=== PATIENT | female | born 1945 | race African-American/Black ===

== ENCOUNTER 2016-12-27 18:42 | Emergency (ER) | payer MEDICARE, BC ==
[~2016-12-27] VITALS: Ht 157.5 cm; Wt 61.7 kg
[~2016-12-27 18:42] MED LIST: AMLO10TA4 PO; HYDR-2666 PO; LISI30TA4 PO; LORA1TAB PO; METF500T4 PO; POTA10TA31 PO
[2016-12-27 20:20] VITALS: BP 119/57
[2016-12-27] MEDS ORDERED: IV NORMAL SALINE 500ML BAG 500 ML IV ONE (20:30)
[2016-12-27 20:38] LABS: OBC FLU VALID
[2016-12-27 20:42] LABS: BASO % 1 % (0-3); EOS % 0 % (0-3); HEMOGLOBIN 11.5 g/dL (12.0-15.5); LYMPH # 0.4 x10^3/uL (1.0-4.8); LYMPH % 6 % (24-48); MEAN CORPUSCULAR HEMOGLOBIN 27 pg (25-35); MEAN CORPUSCULAR HGB CONC 33 g/dL (31-37); MEAN CORPUSCULAR VOLUME 81 fL (79-100); MONO % 7 % (0-9); NEUT % 87 % (31-73); PLATELET COUNT 147 x10^3/uL (140-400); RED BLOOD COUNT 4.32 x10^6/uL (3.50-5.40); RED CELL DISTRIBUTION WIDTH 14.1 % (11.5-14.5); WHITE BLOOD COUNT 6.9 x10^3/uL (4.0-11.0)
[2016-12-27 21:03] LABS: ALBUMIN 3.4 g/dL (3.4-5.0); ALBUMIN/GLOBULIN RATIO 0.9 (1.0-1.7); CALCIUM 8.8 mg/dL (8.5-10.1); GFR 66.3; TOTAL BILIRUBIN 0.3 mg/dL (0.2-1.0); TOTAL PROTEIN 7.3 g/dL (6.4-8.2)
[2016-12-27 21:08] LABS: POTASSIUM 2.9 mmol/L (3.5-5.1)
[2016-12-27 21:24] LABS: PLT ESTIMATE ADEQUATE (ADEQUATE)
[2016-12-27] MEDS ORDERED: POTA10TA10 PO (21:38)
[2016-12-27] MEDS ORDERED: OSEL75CA PO (21:38)
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
[2016-12-27] MEDS ORDERED: POTASSIUM CHLORIDE 20 MEQ/15 ML ORAL LIQUID. PO ONE (22:00)
[2016-12-27] MEDS ORDERED: OSELTAMIVIR 75 MG CAPSULE PO ONE (22:00)
--- NOTE | 2016-12-28 06:29 | EKG ---
[facility] [address] [place] [address] Test Date: 2016-12-27 Test Time: 19:34:35 Pat Name: GIL MARSHALL Department: Room: Gender: F Center Manager: : 1945 Requested By: JENNA LAWSON Order Number: [id number] Reading MD: Zahra Brown Measurements Intervals [place] Rate: 96 P: 40 NV: 186 QRS: -3 QRSD: 82 T: 32 QT: 348 QTc: 441 Interpretive Statements SINUS RHYTHM LEFTWARD AXIS QRS(T) CONTOUR ABNORMALITY CONSISTENT WITH SEPTAL INFARCT AGE UNDETERMINED ABNORMAL ECG RI6.01 Compared to ECG 11/27/2014 06:43:18 Myocardial infarct finding now present Electronically Signed On 01-01-2017 10:03:06 PUBLICITY EXPERT by Zahra Brown
--- NOTE | 2016-12-28 08:20 | RAD ---
Indication cough. Fever. A single view of the chest was obtained and is compared to an examination 11/21/2009. The heart and pulmonary vessels appear normal. The lungs are clear. There is no pleural fluid or pneumothorax. A significant change when compared to the previous exam is not seen. IMPRESSION: No acute or focal process is seen in the chest
== END 2016-12-27 22:05 | disposition home or self-care (01) ==
LOC: ER 18:42
DX: J09.X2 Influenza due to identified novel influenza A virus with other respiratory manifestations (principal); E87.6 Hypokalemia; R19.7 Diarrhea, unspecified; R11.10 Vomiting, unspecified; R42 Dizziness and giddiness; M19.90 Unspecified osteoarthritis, unspecified site; E11.9 Type 2 diabetes mellitus without complications; I10 Essential (primary) hypertension; Z90.710 Acquired absence of both cervix and uterus
CPT/HCPCS: 36415; 71010; 80053; 85007; 85027; 87804; 93005; 99285; J7040; 99284

== ENCOUNTER 2017-10-22 15:37 | Emergency (ER) | payer MEDICARE, BC ==
[~2017-10-22] VITALS: Ht 157.5 cm; Wt 61.7 kg
[~2017-10-22 15:37] MED LIST changes: -HYDR-2666 PO; +HYDR-2758 PO; +OSEL75CA PO; +POTA10TA12 PO
[2017-10-22 17:41] LABS: BASO # 0.1 x10^3/uL (0.0-0.2); BASO % 1 % (0-3); EOS % 0 % (0-3); HEMATOCRIT 36.1 % (36.0-47.0); HEMOGLOBIN 11.8 g/dL (12.0-15.5); LYMPH % 29 % (24-48); MEAN CORPUSCULAR HEMOGLOBIN 27 pg (25-35); MEAN CORPUSCULAR HGB CONC 33 g/dL (31-37); MEAN CORPUSCULAR VOLUME 83 fL (79-100); MONO % 11 % (0-9); NEUT % 58 % (31-73); PLATELET COUNT 176 x10^3/uL (140-400); RED BLOOD COUNT 4.34 x10^6/uL (3.50-5.40); RED CELL DISTRIBUTION WIDTH 14.2 % (11.5-14.5); WHITE BLOOD COUNT 6.9 x10^3/uL (4.0-11.0)
[2017-10-22 17:56] LABS: CREATININE 0.9 mg/dL (0.6-1.0); GFR 74.9; POTASSIUM 3.3 mmol/L (3.5-5.1)
[2017-10-22 18:01] LABS: ALBUMIN 3.5 g/dL (3.4-5.0); ALBUMIN/GLOBULIN RATIO 0.9 (1.0-1.7); TOTAL BILIRUBIN 0.4 mg/dL (0.2-1.0); TOTAL PROTEIN 7.2 g/dL (6.4-8.2)
[2017-10-22] MEDS ORDERED: ACETAMINOPHEN 500 MG TABLET PO ONE (18:15)
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
--- NOTE | 2017-10-22 20:44 | RAD ---
Left Lower Extremity Venous Doppler Ultrasound History: Left knee pain and lower leg pain and left lower extremity swelling Comparison: None Procedure: Color flow, duplex, spectral analysis and 2D images are obtained with and without compression in the area of the common femoral vein, superficial femoral vein - femoral vein junction, main femoral vein (superficial femoral vein) and popliteal vein. Veins of the proximal calf are also imaged. Findings: There is normal duplex flow, color flow and compressibility of all visualized vein segments. No evidence of deep venous thrombus is present. Impression: No evidence of DVT. Electronically signed by: Gerard Leyva III, MD (10/22/2017 8:41 PM) [facility]
[2017-10-22 21:23] VITALS: BP 119/79
--- NOTE | 2017-10-23 08:45 | RAD ---
TIBIA FIBULA LEFT Clinical Indication: Nontraumatic left leg pain and swelling for 4 days. Patient reports pain due to swelling from the left proximal knee to the foot. Comparison: None. Technique: Frontal and lateral views of the left tibia and fibula are obtained. Findings: No acute fracture or dislocation is seen. Knee and ankle joints appear grossly maintained. Degenerative changes are seen involving the knee. Mild soft tissue stranding is seen along the lateral soft tissues on the frontal view. IMPRESSION: No acute osseous injury seen.
--- NOTE | 2017-10-23 08:49 | RAD ---
KNEE LEFT 4V Clinical Indication: Nontraumatic pain and swelling for 4 days. Comparison: None. Technique: Frontal, oblique, lateral, and sunrise views of the left knee are obtained. Findings: Mild to moderate tricompartmental degenerative changes are present. Soft tissue swelling and stranding is seen about the medial aspect of the knee, as well as soft tissue swelling seen along the anterior knee. No acute fracture or dislocation is seen. Mild chondrocalcinosis is present. A small suprapatellar joint effusion is suggested. IMPRESSION: 1. No acute osseous injury. Soft tissue swelling and stranding about the medial knee, with small suprapatellar joint fluid suggested. 2. Tricompartmental degenerative changes.
== END 2017-10-22 22:05 | disposition home or self-care (01) ==
LOC: ER 15:37
DX: M79.605 Pain in left leg (principal); M79.89 Other specified soft tissue disorders; M19.90 Unspecified osteoarthritis, unspecified site; I10 Essential (primary) hypertension; E11.9 Type 2 diabetes mellitus without complications; Z90.710 Acquired absence of both cervix and uterus
CPT/HCPCS: 36415; 73564; 73590; 80053; 83880; 85025; 93971; 99285-25

== ENCOUNTER → 2018-01-18 | Outpatient (CLI) | payer MEDICARE, BC | END | disposition home or self-care (01) | LOC: MAMMO 10:12 | DX: Z12.31 Encounter for screening mammogram for malignant neoplasm of breast (principal) | CPT/HCPCS: 77063; 77067 ==

== ENCOUNTER 2018-09-20 10:54 | Emergency (ER) | payer MEDICARE, BC ==
[~2018-09-20] VITALS: Ht 157.5 cm; Wt 61.7 kg
[~2018-09-20 10:54] MED LIST changes: +METF500T16 PO; -METF500T4 PO
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
[2018-09-20] MEDS ORDERED: IV NORMAL SALINE 500ML BAG 500 ML IV ONE (12:15)
[2018-09-20 12:27] LABS: BASO % 0 % (0-3); EOS # 0.1 x10^3/uL (0.0-0.7); EOS % 1 % (0-3); HEMOGLOBIN 12.9 g/dL (12.0-15.5); LYMPH # 2.3 x10^3/uL (1.0-4.8); LYMPH % 37 % (24-48); MEAN CORPUSCULAR HEMOGLOBIN 28 pg (25-35); MEAN CORPUSCULAR HGB CONC 34 g/dL (31-37); MEAN CORPUSCULAR VOLUME 82 fL (79-100); MONO # 0.5 x10^3/uL (0.0-1.1); MONO % 7 % (0-9); NEUT # 3.4 x10^3uL (1.8-7.7); NEUT % 55 % (31-73); PLATELET COUNT 219 x10^3/uL (140-400); RED BLOOD COUNT 4.64 x10^6/uL (3.50-5.40); RED CELL DISTRIBUTION WIDTH 14.2 % (11.5-14.5); WHITE BLOOD COUNT 6.3 x10^3/uL (4.0-11.0)
[2018-09-20 12:29] LABS: BILIRUBIN,URINE NEGATIVE (NEG); CLARITY,URINE CLEAR; NITRITE,URINE NEGATIVE (NEG); PROTEIN,URINE NEGATIVE (NEG-TRACE); UROBILINOGEN,URINE 0.2 mg/dL (0.2 mg/dL)
[2018-09-20 12:33] LABS: CALCIUM 9.8 mg/dL (8.5-10.1); CREATININE 0.8 mg/dL (0.6-1.0); GFR 85.6; POTASSIUM 3.4 mmol/L (3.5-5.1)
[2018-09-20 12:43] LABS: BACTERIA,URINE FEW /HPF (0-FEW); COLOR,URINE COLORLESS; RBC,URINE RARE /HPF (0-2); SQUAMOUS EPITHELIAL CELL,UR OCC /LPF; WBC,URINE RARE /HPF (0-4)
--- NOTE | 2018-09-20 13:11 | EKG ---
[facility] [address] [place] [address] Test Date: 2018-09-20 Test Time: 12:12:58 Pat Name: GIL MRASHALL Department: Room: Gender: F Storage Battery Tester: : 1945 Requested By: FRANKI BAZAN Order Number: [id number] Reading MD: Bandar Landrum Measurements Intervals [place] Rate: 74 P: 47 MO: 194 QRS: 1 QRSD: 74 T: 48 QT: 392 QTc: 440 Interpretive Statements SINUS RHYTHM NORMAL ECG Electronically Signed On 09-23-2018 10:24:15 CDT by Bandar Landrum
[2018-09-20 13:30] VITALS: BP 122/65
== END 2018-09-20 14:00 | disposition home or self-care (01) ==
LOC: ER 10:54
DX: I10 Essential (primary) hypertension (principal); R42 Dizziness and giddiness; E11.9 Type 2 diabetes mellitus without complications; Z90.710 Acquired absence of both cervix and uterus; Z98.890 Other specified postprocedural states
CPT/HCPCS: 36415; 80048; 81001; 84484; 85025; 93005; 96360; 99285; J7040

== ENCOUNTER 2018-12-11 08:32 | Emergency (ER) | payer MEDICARE, BC ==
[~2018-12-11] VITALS: Ht 157.5 cm; Wt 63.5 kg
[~2018-12-11 08:32] MED LIST changes: -HYDR-2758 PO; +HYDR-2761 PO
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
[2018-12-11 09:05] LABS: BILIRUBIN,URINE NEGATIVE (NEG); CLARITY,URINE CLEAR; NITRITE,URINE NEGATIVE (NEG); PROTEIN,URINE NEGATIVE (NEG-TRACE); UROBILINOGEN,URINE 0.2 mg/dL (0.2 mg/dL)
[2018-12-11 09:08] LABS: BASO # 0.1 x10^3/uL (0.0-0.2); BASO % 1 % (0-3); EOS # 0.1 x10^3/uL (0.0-0.7); EOS % 1 % (0-3); HEMATOCRIT 37.5 % (36.0-47.0); LYMPH # 2.6 x10^3/uL (1.0-4.8); LYMPH % 51 % (24-48); MEAN CORPUSCULAR HEMOGLOBIN 29 pg (25-35); MEAN CORPUSCULAR HGB CONC 35 g/dL (31-37); MEAN CORPUSCULAR VOLUME 83 fL (79-100); MONO # 0.4 x10^3/uL (0.0-1.1); MONO % 9 % (0-9); NEUT # 1.9 x10^3uL (1.8-7.7); NEUT % 38 % (31-73); PLATELET COUNT 219 x10^3/uL (140-400); RED BLOOD COUNT 4.55 x10^6/uL (3.50-5.40); RED CELL DISTRIBUTION WIDTH 13.9 % (11.5-14.5); WHITE BLOOD COUNT 5.1 x10^3/uL (4.0-11.0)
[2018-12-11 09:10] LABS: COLOR,URINE COLORLESS; RBC,URINE OCC /HPF (0-2); SQUAMOUS EPITHELIAL CELL,UR FEW /LPF; WBC,URINE 0 /HPF (0-4)
[2018-12-11 09:11] LABS: BACTERIA,URINE 0 /HPF (0-FEW)
[2018-12-11 09:21] LABS: CALCIUM 9.9 mg/dL (8.5-10.1); CREATININE 0.8 mg/dL (0.6-1.0); GFR 85.3; POTASSIUM 3.6 mmol/L (3.5-5.1)
[2018-12-11 10:00] VITALS: BP 130/66
--- NOTE | 2018-12-11 10:59 | EKG ---
[facility] [address] [place] [address] Test Date: 2018-12-11 Test Time: 08:49:33 Pat Name: GIL MARSHALL Department: Room: Gender: Female [employer] Personality: : 1945 Requested By: FRANKI BAZAN Order Number: [id number] Reading MD: Bandar Landrum Measurements Intervals [place] Rate: 82 P: 38 GA: 200 QRS: -2 QRSD: 74 T: 49 QT: 370 QTc: 435 Interpretive Statements SINUS RHYTHM LEFTWARD AXIS QRS(T) CONTOUR ABNORMALITY CONSISTENT WITH ANTEROSEPTAL INFARCT PROBABLY OLD ABNORMAL ECG Electronically Signed On 12-21-2018 17:00:53 PEST CONTROL SPECIALIST by Bandar Landrum
== END 2018-12-11 10:12 | disposition home or self-care (01) ==
LOC: ER 08:32
DX: I10 Essential (primary) hypertension (principal); F41.9 Anxiety disorder, unspecified; E11.9 Type 2 diabetes mellitus without complications
CPT/HCPCS: 36415; 80048; 81001; 84484; 85025; 93005; 99284

== ENCOUNTER → 2019-01-21 | Outpatient (CLI) | payer MEDICARE, BC ==
[~2019-01-21] MED LIST changes: +NAPR-695 PO; +PRED50TA PO
--- NOTE | 2019-01-23 14:25 | RAD ---
DATE: 01/21/2019 11:30 AM EXAM: MAMMO GAB SCREENING BILATERAL HISTORY: routine screening evaluation. COMPARISON: Prior mammographic imaging dating back to 11/10/2014 Bilateral CC and MLO views of the breasts were performed. Bilateral breast tomosynthesis was performed in CC and MLO projections. This study was interpreted with the benefit of Computerized Aided Detection (CAD ). Breast Density: The breast parenchyma is primarily fatty replaced. Breast parenchyma level density A. FINDINGS: Benign calcifications are present. The parenchymal pattern appears stable. No suspicious masses, microcalcifications or architectural distortion is present to suggest malignancy in either breast. The visualized axillae are unremarkable. IMPRESSION: No mammographic evidence of malignancy. BI-RADS CATEGORY: 2 BENIGN FINDING(S) RECOMMENDED FOLLOW-UP: 12M 12 MONTH FOLLOW-UP Annual screening mammography is recommended, unless clinically indicated sooner based on symptoms or change in physical exam. PQRS compliance statement: Patient information was entered into a reminder system with a target due date 01/23/2020 for the next mammogram. Mammography is a sensitive method for finding small breast cancers, but it does not detect them all and is not a substitute for careful clinical examination. A negative mammogram does not negate a clinically suspicious finding and should not result in delay in biopsying a clinically suspicious abnormality. "Our facility is accredited by the [employer] Mammography Program." [place]
== END | disposition home or self-care (01) ==
LOC: MAMMO 09:17
PROVIDERS: ATTEND Nurse Practitioner Family
DX: Z12.31 Encounter for screening mammogram for malignant neoplasm of breast (principal)
CPT/HCPCS: 77063; 77067

== ENCOUNTER 2019-01-31 22:39 | Emergency (ER) | payer MEDICARE, BC ==
[~2019-01-31] VITALS: Ht 157.5 cm; Wt 62.1 kg
[~2019-01-31 22:39] MED LIST changes: -NAPR-695 PO; -PRED50TA PO
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
[2019-01-31] MEDS ORDERED: PRED50TA PO (23:51)
[2019-01-31] MEDS ORDERED: methylPREDNISolone SOD SUCC PF 125 MG/2 ML VIAL. IM ONE (23:55)
[2019-02-01 00:19] VITALS: BP 134/67
--- NOTE | 2019-02-01 02:13 | RAD ---
Indication:wrist pain/swelling; no injury TECHNIQUE: 3 views of left wrist COMPARISON: None FINDINGS/ impression: Diffuse osteopenia. No acute fracture or dislocation. Mild radiocarpal joint osteoarthritis. Mild wrist soft tissue swelling. Electronically signed by: Sukhdeep Mckeon DO (02/01/2019 2:10 AM) [facility] [place]
== END 2019-02-01 00:15 | disposition home or self-care (01) ==
LOC: ER 22:39
DX: M19.032 Primary osteoarthritis, left wrist (principal); I10 Essential (primary) hypertension; E11.9 Type 2 diabetes mellitus without complications
CPT/HCPCS: 73110; 96372; 99283; J2930

== ENCOUNTER 2019-02-15 03:26 | Emergency (ER) | payer MEDICARE, BC ==
[~2019-02-15] VITALS: Ht 157.5 cm; Wt 62.1 kg
[~2019-02-15 03:26] MED LIST changes: +PRED50TA PO
[2019-02-15] MEDS ORDERED: DEXAMETHASONE 4 MG TABLET PO ONE (04:00)
[2019-02-15] MEDS ORDERED: NAPR-695 PO (04:00)
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
[2019-02-15 04:20] VITALS: BP 124/59
--- NOTE | 2019-02-15 07:59 | RAD ---
Left hand, 3 views, 02/15/2019: HISTORY: Hand pain and swelling There is mild patchy bony demineralization. There are mild to moderate degenerative changes at scattered interphalangeal and MCP joints. No bone erosions are seen. There are mild degenerative changes at the wrist with chondrocalcinosis involving the triangular fibrocartilage. No fracture or dislocation is identified. IMPRESSION: 1. Mild to moderate scattered degenerative changes. 2. No acute bony abnormality is detected. Electronically signed by: Joseph Morales MD (02/15/2019 7:56 AM) [facility]
== END 2019-02-15 04:30 | disposition home or self-care (01) ==
LOC: ER 03:26
DX: S60.222A Contusion of left hand, initial encounter (principal); R60.0 Localized edema; I10 Essential (primary) hypertension; E11.9 Type 2 diabetes mellitus without complications; W22.8XXA Striking against or struck by other objects, initial encounter; Y93.89 Activity, other specified; Y92.89 Other specified places as the place of occurrence of the external cause; Y99.8 Other external cause status
CPT/HCPCS: 73130; 99283; J8540

== ENCOUNTER 2019-05-08 08:02 | Emergency (ER) | payer MEDICARE, BC ==
[~2019-05-08] VITALS: Ht 157.5 cm; Wt 59.4 kg
[~2019-05-08 08:02] MED LIST changes: +NAPR-695 PO
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
[2019-05-08 08:54] LABS: BASO # 0.1 x10^3/uL (0.0-0.2); BASO % 1 % (0-3); EOS % 1 % (0-3); HEMATOCRIT 38.5 % (36.0-47.0); HEMOGLOBIN 12.9 g/dL (12.0-15.5); LYMPH % 37 % (24-48); MEAN CORPUSCULAR HEMOGLOBIN 28 pg (25-35); MEAN CORPUSCULAR HGB CONC 34 g/dL (31-37); MEAN CORPUSCULAR VOLUME 83 fL (79-100); MONO # 0.5 x10^3/uL (0.0-1.1); MONO % 9 % (0-9); NEUT # 2.8 x10^3uL (1.8-7.7); NEUT % 52 % (31-73); PLATELET COUNT 217 x10^3/uL (140-400); RED BLOOD COUNT 4.63 x10^6/uL (3.50-5.40); RED CELL DISTRIBUTION WIDTH 14.5 % (11.5-14.5); WHITE BLOOD COUNT 5.4 x10^3/uL (4.0-11.0)
[2019-05-08 08:56] LABS: BILIRUBIN,URINE NEGATIVE (NEG); CLARITY,URINE CLEAR; COLOR,URINE YELLOW; NITRITE,URINE NEGATIVE (NEG); PROTEIN,URINE NEGATIVE (NEG-TRACE); UROBILINOGEN,URINE 0.2 mg/dL (0.2 mg/dL)
[2019-05-08 09:02] LABS: CALCIUM 10.5 mg/dL (8.5-10.1); CREATININE 0.8 mg/dL (0.6-1.0); GFR 85.3; POTASSIUM 3.3 mmol/L (3.5-5.1)
--- NOTE | 2019-05-08 09:05 | RAD ---
CHEST PA LATERAL History: Left upper back pain Comparison: 12/27/2016 portable chest x-ray exam. Findings: The cardiomediastinal silhouette is normal. Pulmonary vasculature is normal. The lungs are clear. No pleural effusion or pneumothorax is seen. There is no acute bone abnormality. IMPRESSION: No acute cardiopulmonary process. Electronically signed by: Donnell Briones MD (05/08/2019 9:02 AM) [id number]
[2019-05-08 09:08] LABS: ALBUMIN/GLOBULIN RATIO 0.9 (1.0-1.7); MAGNESIUM 1.8 mg/dL (1.8-2.4); TOTAL BILIRUBIN 0.3 mg/dL (0.2-1.0); TOTAL PROTEIN 8.3 g/dL (6.4-8.2)
[2019-05-08 09:29] LABS: BACTERIA,URINE 0 /HPF (0-FEW); RBC,URINE 0 /HPF (0-2); SQUAMOUS EPITHELIAL CELL,UR FEW /LPF; WBC,URINE 0 /HPF (0-4)
[2019-05-08 09:54] VITALS: BP 125/58
--- NOTE | 2019-05-08 12:05 | EKG ---
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
== END 2019-05-08 10:17 | disposition home or self-care (01) ==
LOC: ER 08:02
DX: M54.6 Pain in thoracic spine (principal); M19.90 Unspecified osteoarthritis, unspecified site; E11.9 Type 2 diabetes mellitus without complications; I10 Essential (primary) hypertension; Z90.710 Acquired absence of both cervix and uterus
CPT/HCPCS: 36415; 71046; 80053; 81001; 83735; 84484; 85025; 93005; 99285-25

== ENCOUNTER 2019-05-22 05:49 | Emergency (ER) | payer MEDICARE, BC ==
[~2019-05-22] VITALS: Ht 157.5 cm; Wt 59.0 kg
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
[2019-05-22 06:28] LABS: BASO % 1 % (0-3); EOS % 1 % (0-3); HEMATOCRIT 37.9 % (36.0-47.0); HEMOGLOBIN 12.5 g/dL (12.0-15.5); LYMPH % 35 % (24-48); MEAN CORPUSCULAR HEMOGLOBIN 28 pg (25-35); MEAN CORPUSCULAR HGB CONC 33 g/dL (31-37); MEAN CORPUSCULAR VOLUME 83 fL (79-100); MONO # 0.5 x10^3/uL (0.0-1.1); MONO % 8 % (0-9); NEUT # 3.2 x10^3uL (1.8-7.7); NEUT % 56 % (31-73); PLATELET COUNT 248 x10^3/uL (140-400); RED BLOOD COUNT 4.57 x10^6/uL (3.50-5.40); RED CELL DISTRIBUTION WIDTH 14.9 % (11.5-14.5); WHITE BLOOD COUNT 5.8 x10^3/uL (4.0-11.0)
[2019-05-22 06:37] LABS: PROTHROMBIN TIME PATIENT 12.8 SEC (11.7-14.0)
[2019-05-22 06:44] LABS: CALCIUM 9.7 mg/dL (8.5-10.1); CREATININE 0.9 mg/dL (0.6-1.0); GFR 74.5; POTASSIUM 3.7 mmol/L (3.5-5.1)
[2019-05-22 06:53] LABS: ALBUMIN 4.1 g/dL (3.4-5.0); ALBUMIN/GLOBULIN RATIO 1.2 (1.0-1.7); MAGNESIUM 1.8 mg/dL (1.8-2.4); TOTAL BILIRUBIN 0.2 mg/dL (0.2-1.0); TOTAL PROTEIN 7.5 g/dL (6.4-8.2)
--- NOTE | 2019-05-22 06:59 | EKG ---
[facility] [address] [place] [address] Test Date: 2019-05-22 Test Time: 06:12:35 Pat Name: GIL MARSHALL Department: Room: Gender: F Care Analyst: DALIA : 1945 Requested By: YVONNE GRANT Order Number: [id number] Reading MD: Measurements Intervals [place] Rate: 83 P: -42 [place]: 184 QRS: -18 QRSD: 74 T: 18 QT: 364 QTc: 433 Interpretive Statements SINUS RHYTHM LEFT ATRIAL ABNORMALITY LEFTWARD AXIS QRS(T) CONTOUR ABNORMALITY CONSISTENT WITH ANTEROSEPTAL INFARCT AGE UNDETERMINED ABNORMAL ECG No previous ECG available for comparison
--- NOTE | 2019-05-22 07:26 | RAD ---
CT head without contrast PQRS statement: CT scans at this facility use dose reduction including either automated exposure control, iterative reconstructions, and /or weight based radiation dosing via mA and kV modification when appropriate to reduce radiation dose to as low as reasonably achievable. HISTORY: Right facial pain, hypertension. TECHNIQUE: 5 mm axial noncontrast imaging skull base to vertex. FINDINGS: Cerebral white matter hypoattenuation in a patient of this age most likely represents imaging changes of chronic microvascular ischemic injury. No intracranial hemorrhage, mass, hydrocephalus or infarction. White matter infarction could be obscured by the presumed chronic hypoattenuating changes. Imaged orbits, mastoids, paranasal sinuses and bones are unremarkable. IMPRESSION: No acute intracranial CT abnormality. Electronically signed by: Zafar Mejias MD (05/22/2019 7:23 AM) [id number]
[2019-05-22 07:34] VITALS: BP 132/64
== END 2019-05-22 08:00 | disposition home or self-care (01) ==
LOC: ER 05:49
DX: G50.1 Atypical facial pain (principal); I10 Essential (primary) hypertension; F41.9 Anxiety disorder, unspecified; M19.90 Unspecified osteoarthritis, unspecified site; E11.9 Type 2 diabetes mellitus without complications; K21.9 Gastro-esophageal reflux disease without esophagitis; E78.00 Pure hypercholesterolemia, unspecified; Z90.710 Acquired absence of both cervix and uterus
CPT/HCPCS: 36415; 70450; 80053; 82553; 83735; 84484; 85025; 85610; 85730; 93005; 99285-25

== ENCOUNTER → 2020-04-03 | Outpatient (CLI) | payer MEDICARE, BC ==
[~2020-04-03] MED LIST changes: -POTA10TA12 PO; +POTASSIUM CHLO10 ME1 PO
--- NOTE | 2020-04-05 16:44 | RAD ---
DATE: 04/03/2020 12:35 PM EXAM: MAMMO GAB SCREENING BILATERAL HISTORY: Screening COMPARISON: 01/21/2019 Bilateral CC and MLO views of the breasts were performed. Bilateral breast tomosynthesis was performed in CC and MLO projections. This study was interpreted with the benefit of Computerized Aided Detection (CAD). FINDINGS: Breast Density: FATTY The Breast Parenchyma is primarily fatty replaced. Breast parenchyma level density A. No suspicious masses, microcalcifications or architectural distortion is present to suggest malignancy in either breast. The visualized axillae are unremarkable. IMPRESSION: No mammographic evidence of malignancy. BI-RADS CATEGORY: 1 NEGATIVE RECOMMENDED FOLLOW-UP: 12M 12 MONTH FOLLOW-UP Annual screening mammography is recommended, unless clinically indicated sooner based on symptoms or change in physical exam. PQRS compliance statement: Patient information was entered into a reminder system with a target due date 04/04/2021 for the next mammogram. Mammography is a sensitive method for finding small breast cancers, but it does not detect them all and is not a substitute for careful clinical examination. A negative mammogram does not negate a clinically suspicious finding and should not result in delay in biopsying a clinically suspicious abnormality. "Our facility is accredited by the [employer] Mammography Program."
== END | disposition home or self-care (01) ==
LOC: MAMMO 12:06
PROVIDERS: ATTEND Nurse Practitioner Family
DX: Z12.31 Encounter for screening mammogram for malignant neoplasm of breast (principal)
CPT/HCPCS: 77063; 77067

== ENCOUNTER 2020-06-07 17:32 | Emergency (ER) | payer MEDICARE, BC ==
[~2020-06-07] VITALS: Ht 157.5 cm; Wt 61.8 kg
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
--- NOTE | 2020-06-07 19:58 | RAD ---
INDICATION: Reason: pain / Spl. Instructions: / History: COMPARISON: None. IMPRESSION: Left shoulder: 3 views obtained. Hypertrophic changes at the acromioclavicular joint which could be seen with degenerative changes. Calcific atherosclerosis at partially visualized thoracic aorta. No evidence of acute fracture or dislocation at the left shoulder joint. There is evidence of degenerative changes with osteophyte formation at the glenohumeral joint. Scapula: 2 views obtained without a definite acute fracture seen. No evidence of dislocation. Subchondral cyst formation is suspected at the glenoid. Electronically signed by: Otis Miles MD (06/07/2020 7:55 PM) [id number]
[2020-06-07] MEDS ORDERED: HYDR-3164 PO (20:06)
[2020-06-07 20:34] VITALS: BP 157/69
== END 2020-06-07 20:38 | disposition home or self-care (01) ==
LOC: ER 17:32
DX: M25.512 Pain in left shoulder (principal); G89.29 Other chronic pain; E11.9 Type 2 diabetes mellitus without complications; K21.9 Gastro-esophageal reflux disease without esophagitis; E78.00 Pure hypercholesterolemia, unspecified; I10 Essential (primary) hypertension
CPT/HCPCS: 73010; 73030; 99284

== ENCOUNTER 2020-09-12 06:52 | Emergency (ER) | payer MEDICARE, BC ==
[~2020-09-12] VITALS: Ht 157.5 cm; Wt 62.0 kg
[~2020-09-12 06:52] MED LIST changes: +HYDR-3164 PO
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
[2020-09-12 07:48] LABS: BILIRUBIN,URINE NEGATIVE (NEG); CLARITY,URINE CLEAR; COLOR,URINE YELLOW; NITRITE,URINE NEGATIVE (NEG); PH,URINE 6.5 (<5.0-8.0); PROTEIN,URINE NEGATIVE (NEG-TRACE); UROBILINOGEN,URINE 0.2 mg/dL (0.2 mg/dL)
[2020-09-12 07:48] LABS: BASO # 0.1 x10^3/uL (0.0-0.2); BASO % 1 % (0-3); EOS # 0.1 x10^3/uL (0.0-0.7); EOS % 1 % (0-3); HEMATOCRIT 37.7 % (36.0-47.0); HEMOGLOBIN 12.5 g/dL (12.0-15.5); LYMPH # 3.5 x10^3/uL (1.0-4.8); LYMPH % 51 % (24-48); MEAN CORPUSCULAR HEMOGLOBIN 27 pg (25-35); MEAN CORPUSCULAR HGB CONC 33 g/dL (31-37); MEAN CORPUSCULAR VOLUME 83 fL (79-100); MONO # 0.5 x10^3/uL (0.0-1.1); MONO % 8 % (0-9); NEUT # 2.7 x10^3/uL (1.8-7.7); NEUT % 39 % (31-73); PLATELET COUNT 224 x10^3/uL (140-400); RED BLOOD COUNT 4.55 x10^6/uL (3.50-5.40); RED CELL DISTRIBUTION WIDTH 13.6 % (11.5-14.5); WHITE BLOOD COUNT 6.8 x10^3/uL (4.0-11.0)
--- NOTE | 2020-09-12 08:03 | RAD ---
CT HEAD WO CONTRAST Date: 09/12/2020 7:22 AM Clinical Indication: dizziness Comparison: 05/22/2019. Technique: 5 mm axial tomographic images were obtained of the head without contrast. These were viewed on brain and bone windows. One or more of the following dose reduction techniques were utilized: Automated exposure control (AEC), Adjustment of mA and/or kV according to patient size, Use of iterative reconstruction technique such as ASiR, CT scan done according to ALARA and image gently/image wisely Findings: Moderate nonspecific periventricular hypoattenuation is most consistent with chronic small vessel ischemic disease. No intra- or extra-axial mass or fluid collection. No acute hemorrhage. The ventricles are normal in size, shape, and morphology. The shaw-white matter junction is normal. The subarachnoid cisterns are patent. The visualized paranasal sinuses are normal. The visualized portions of the orbits and globes are normal. The mastoid air cells are clear. The accounts collector topogram shows no lytic lesion or fracture. Impression: No acute intracranial process. Electronically signed by: Darryl Miramontes MD (09/12/2020 8:00 AM) [id number]
--- NOTE | 2020-09-12 08:08 | RAD ---
EXAMINATION: CHEST AP ONLY CLINICAL HISTORY: Dizzy EXAM DATE/TIME: 09/12/2020 7:22 AM COMPARISON: 05/08/2019 FINDINGS: Lines, Tubes, and Devices: None. Cardiomediastinal Silhouette: Normal heart size. Aortic atherosclerotic calcification. Lungs and Pleura: Mild curvilinear subsegmental atelectasis and/or scarring in the left lower lung zone. No evidence of focal airspace consolidation or pleural effusion. Pulmonary vasculature unremarkable. Bones and Soft Tissues: Degenerative changes of the thoracic spine. IMPRESSION: No evidence of acute cardiopulmonary abnormality or significant interval change. Electronically signed by: Rob Garcia DO (09/12/2020 8:05 AM) [id number]
[2020-09-12 08:16] LABS: BACTERIA,URINE 0 /HPF (0-FEW); RBC,URINE OCC /HPF (0-2); WBC,URINE OCC /HPF (0-4)
[2020-09-12 08:53] LABS: CALCIUM 9.2 mg/dL (8.5-10.1); CREATININE 0.9 mg/dL (0.6-1.0); GFR 74.3; POTASSIUM 3.3 mmol/L (3.5-5.1)
[2020-09-12 08:58] LABS: ALBUMIN 3.6 g/dL (3.4-5.0); DIRECT BILIRUBIN 0.1 mg/dL (0.0-0.2); TOTAL BILIRUBIN 0.1 mg/dL (0.2-1.0); TOTAL PROTEIN 6.5 g/dL (6.4-8.2)
[2020-09-12 10:38] VITALS: BP 120/56
== END 2020-09-12 10:43 | disposition home or self-care (01) ==
LOC: ER 06:52
DX: R42 Dizziness and giddiness (principal); I47.1 Supraventricular tachycardia; M19.90 Unspecified osteoarthritis, unspecified site; F41.9 Anxiety disorder, unspecified; E11.9 Type 2 diabetes mellitus without complications; K21.9 Gastro-esophageal reflux disease without esophagitis; E78.00 Pure hypercholesterolemia, unspecified; I10 Essential (primary) hypertension; Z90.710 Acquired absence of both cervix and uterus; Z98.890 Other specified postprocedural states
CPT/HCPCS: 36415; 70450; 71045; 80048; 80076; 81001; 83690; 84484; 85025; 93005; 99285

== ENCOUNTER 2020-11-18 08:44 | Emergency (ER) | payer MEDICARE, BC ==
[~2020-11-18] VITALS: Ht 157.5 cm; Wt 62.0 kg
[2020-11-18 09:15] LABS: BILIRUBIN,URINE NEGATIVE (NEG); CLARITY,URINE CLEAR; COLOR,URINE YELLOW; NITRITE,URINE NEGATIVE (NEG); PH,URINE 6.5 (<5.0-8.0); PROTEIN,URINE NEGATIVE (NEG-TRACE); UROBILINOGEN,URINE 0.2 mg/dL (0.2 mg/dL)
[2020-11-18 09:28] LABS: BARBITURATES NEG (NEG); BENZODIAZEPINES NEG (NEG); CANNABINOIDS NEG (NEG); COCAINE NEG (NEG); METHADONE NEG (NEG); OPIATES NEG (NEG); PHENCYCLIDINE NEG (NEG)
[2020-11-18 09:29] LABS: AMPHETAMINE/METHAMPHETAMINE NEG (NEG)
[2020-11-18 09:30] LABS: RBC,URINE 0 /HPF (0-2)
[2020-11-18 09:31] LABS: BACTERIA,URINE 0 /HPF (0-FEW); WBC,URINE 0 /HPF (0-4)
--- NOTE | 2020-11-18 09:51 | PHYS DOC ---
Past Medical History Past Medical History: Anxiety, Arthritis, Diabetes-Type II, GERD, High Ch olesterol, Hypertension Additional Past Medical Histor: OSTEOPOROSIS Past Surgical History: Hysterectomy Additional Past Surgical Histo: foot Smoking Status: Never Smoker Alcohol Use: None Drug Use: None General Adult EDM: Chief Complaint: HYPERTENSION HPI: HPI: 75-year-old female past medical history significant for diabetes, hypertension and hyperlipidemia, presents to the ED with complaints of " can feel my heart pain in the left side of my neck," started her last night around 11 PM while watching TV. Patient states when she gets up and moves around she does not notice it. Had recently had a couple coffee when this started and took a Piero aspirin. Had decreased sleep overnight when she woke up no she still had the sensation in her neck. Took her blood pressure at home. Systolic was in the 180s so came to the ED. Is on lisinopril, amlodipine and nifedipine for blood pressure. No recent change in medications since 2019. No history of stroke or acute coronary syndrome. Denies any associated chest pain or pressure, dyspnea, confusion, speech changes, facial droop, sensory or motor deficits, weakness or neurologic deficits. Reports she drinks 1 to 2 cups of coffee per day. No [id number] decongestants. Denies any cocaine or methamphetamine use. Otherwise feels well, no recent flu-like illness. No head injury or LOC. On no AC. Review of Systems: Review of Systems: Constitutional: Denies fever or chills. [] Eyes: Denies change in visual acuity or vision loss HENT: Denies nasal congestion or sore throat, denies any facial droop or speech changes Respiratory: Denies cough or shortness of breath. [] Cardiovascular: Denies chest pain or edema or syncope GI: Denies abdominal pain, nausea, vomiting, bloody stools or diarrhea. [] : Denies dysuria or dysuria Musculoskeletal: Denies back pain or joint pain. [] Integument: Denies rash or cyanosis Neurologic: Denies headache, neck pain, focal weakness or sensory changes, denies any ataxia or difficulties walking Endocrine: Denies polyuria or polydipsia. [] Lymphatic: Denies swollen glands. [] Psychiatric: Denies depression or anxiety. [] Heart Score: Risk Factors: Risk Factors: DM, Current or recent (<one month) smoker, HTN, HLP, family history of CAD, obesity. Risk Scores: Score 0 - 3: 2.5% MACE over next 6 weeks - Discharge Home Score 4 - 6: 20.3% MACE over next 6 weeks - Admit for Clinical Observation Score 7 - 10: 72.7% MACE over next 6 weeks - Early Invasive Strategies Allergies: Allergies: Allergies Coded Allergies Type Severity Reaction Last Updated Verified No Known Drug Allergies 11/27/14 No Physical Exam: PE: Constitutional: Well developed, well nourished, no acute distress, non-toxic appearance, 147/66 during my exam HENT: Normocephalic, atraumatic, Eyes: EOMI, conjunctiva normal, no discharge. Neck: Normal range of motion, supple, Cardiovascular: S1/2 present, regular rhythm Lungs & Thorax: Speaking in full sentences, bilateral equal chest rise, no tachypnea or increased work of breathing Abdomen: soft, no tenderness, Skin: Warm, dry, no erythema, no rash. [] Back: No tenderness, no CVA tenderness. [] Extremities: No tenderness, no cyanosis, no edema Neurologic: Alert and oriented X 3, normal motor function, normal sensory function, no focal deficits noted, steady gait/no ataxia, no facial droop or aphasia, cn2-12 intact Psychologic: Affect normal, judgement normal, mood normal. [] Current Patient Data: Labs: Laboratory Tests Test 11/18/20 08:54 Urine Collection Type Unknown Urine Color Yellow Urine Clarity Clear Urine pH 6.5 (<5.0-8.0) Urine Specific [place] <=1.005 (1.000-1.030) Urine Protein Negative mg/dL (NEG-TRACE) Urine Glucose (UA) Negative mg/dL (NEG) Urine Ketones (Stick) Negative mg/dL (NEG) Urine Blood Negative (NEG) Urine Nitrite Negative (NEG) Urine Bilirubin Negative (NEG) Urine Urobilinogen Dipstick 0.2 mg/dL (0.2 mg/dL) Urine Leukocyte Esterase Negative (NEG) Urine RBC 0 /HPF (0-2) Urine WBC 0 /HPF (0-4) Urine Squamous Epithelial Cells Few /LPF Urine Bacteria 0 /HPF (0-FEW) Urine Opiates Screen Neg (NEG) Urine Methadone Screen Neg (NEG) Urine Barbiturates Neg (NEG) Urine Phencyclidine Screen Neg (NEG) Urine Amphetamine/Methamphetamine Neg (NEG) Urine Benzodiazepines Screen Neg (NEG) Urine Cocaine Screen Neg (NEG) Urine Cannabinoids Screen Neg (NEG) Urine Ethyl Alcohol Neg (NEG) Vital Signs: Vital Signs Date Time Temp Pulse Resp B/P (MAP) Pulse Ox O2 Delivery O2 Flow Rate FiO2 11/18/20 09:00 97.5 83 18 177/82 (113) 98 Room Air 97.5 EKG: EKG: [] Radiology/Procedures: Radiology/Procedures: IMAGING REPORT Signed PATIENT: GIL MARSHALL LACCOUNT: [id number] : 1945 LOCATION: ER AGE: 75 SEX: F EXAM STATUS: REG ER ORD. PHYSICIAN: LAVELLE VERA DO REASON: palpitations PROCEDURE: PORTABLE CHEST 1V XR CHEST 1V INDICATION: palpitations . COMPARISON STUDY: None. FINDINGS: Lungs: Normal lung volume. No pulmonary mass or consolidation. The tracheobronchial tree and hilar structures are normal. Pleura: No pleural effusion or pneumothorax. Heart and Mediastinum: The cardiomediastinal silhouette is normal. The great vessels of the thorax are normal. IMPRESSION: No acute cardiopulmonary process. Electronically signed by: Elba Miramontes MD (11/18/2020 10:41 AM) [id number] DICTATED and SIGNED BY: ELBA MIRAMONTES MD DATE: 11/18/20 [id number] 0 Course & Med Decision Making: Course & Med Decision Making Pertinent Labs and Imaging studies reviewed. (See chart for details) Concern for uncontrolled, asymptomatic hypertension in the absence of any end organ damage. Troponin within normal limits. Creatinine and BUN unremarkable. Chest x-ray with no pulmonary edema. Patient with no neurologic deficits. Per ACEP policy recommend repeat blood pressure check in the next week with primary care physician. No indication medication adjustment at this time. Will discharge home with strict ED return precautions were given for chest pain, dyspnea, neurologic deficits, facial droop, speech changes or confusion. Encouraged urgent outpatient follow-up with PMD. Life-threatening processes were considered but are low suspicion at this time, given history, physical exam and ED workup. Pt was educated on all prescription medications and adverse effects. All patient's questions were answered and pt was stable at time of discharge. Life/limb-threatening differential includes but is not limited to, endorgan damage, pulmonary edema, acute coronary syndrome, TIA/CVA, syncope differential including cardiac arrhythmia/PE/aortic aneurysm or dissection, toxidrome, vertigo, or electrolyte disorder. I spoken with the patient and her caregivers. I explained the patient's condition, diagnoses and treatment plan based on the information available to me at this time. I have answered the patient and her caregiver's questions and addressed any concerns. The patient and her caregivers have a good understanding of patient's diagnosis, condition and treatment plan as can be expected at this point. Vital signs have been stable. Patient's condition is stable and appropriate for discharge from the emergency department. Patient will pursue further outpatient evaluation with primary care physician or other designated or consulting physician as outlined in the discharge instructions. The patient and/or caregivers are agreeable to this plan of care and follow-up instructions have been explained in detail. The patient and/or caregivers have received these instructions in written form and have expressed an understanding of the discharge instructions. The patient and/or caregivers are aware that any significant change of condition or worsening of symptoms should prompt immediate return to this or the closest emergency department or [facility] to 911. Sam Disclaimer: Sam Disclaimer: This electronic medical record was generated, in whole or in part, using a voice recognition dictation system. Departure Departure Impression: Primary Impression: Uncontrolled hypertension Disposition: 01 DC HOME SELF CARE/HOMELESS Condition: STABLE Referrals: RAMO ROBLES COLOR STRAINER (PCP) in 3-5 days for bp recheck, return jazmine if you have chest pain, shortness of breath or confusion Patient Instructions: Hypertension Additional Instructions: EMERGENCY DEPARTMENT GENERAL DISCHARGE INSTRUCTIONS Thank you for coming to [facility] Emergency Department (ED) today and trusting us with you care. We trust that you had a positive experience in our Emergency Department. If you wish to speak to the department management, you may call the Director at [phone]. YOUR FOLLOW UP INSTRUCTIONS ARE FOLLOWS: 1. Do you have a private Doctor? If you do not have a private doctor, please ask for a resource list of physicians or clinics that may be able to assist you with follow up care. 2. The Emergency Physicain has interpreted your x-rays. The X-Ray specialist will also review them. If there is a change in the findings, you will be notified in 48 hours when at all possible. 3. A lab test or culture has been done, your results will be reviewed and you will be notified if you need a change in treatment. ADDITIONAL INSTRUCTIONS AND INFORMATION: 1. Your care today has been supervised by a physician who is specially trained in emergency care. Many problems require more than one evaluation for a complete diagnosis and treatment. We recommend that you schedule your follow up appointment as recommended to ensure complete treatment of you illness or injury. If you are unable to obtain follow up care and continue to have a problem, or if your condition worsens, we recommend that you return to the ED. 2. We are not able to safely determine your condition over the phone nor are we able to give sound medical advice over the phone. For these safety reasons, if you call for medical advice we will ask you to come to the ED for further evaluation. 3. If you have any questions regarding these discharge instructions please call the ED at [phone]. SAFETY INFORMATION: In the interest of safety, wellness, and injury prevention; we encourage you to wear your sealbelt, if you smoke; quite smoking, and we encourage family to use a protective helmet for bicycling and other sporting events that present an increased risk for head injury. IF YOUR SYMPTOMS WORSEN OR NEW SYMPTOMS DEVELOP, OR YOU HAVE CONCERNS ABOUT YOUR CONDITION; OR IF YOUR CONDITION WORSENS WHILE YOU ARE WAITING FOR YOUR FOLLOW UP APPOINTME NT; EITHER CONTACT YOUR PRIMARY CARE DOCTOR, THE PHYSICIAN WHOSE NAME AND NUMBER YOU WERE GIVEN, OR RETURN TO THE ED IMMEDIATELY. [facility] DO Nov 18, 2020 09:51
[2020-11-18 09:56] LABS: BASO % 1 % (0-3); EOS % 1 % (0-3); HEMATOCRIT 37.4 % (36.0-47.0); HEMOGLOBIN 12.3 g/dL (12.0-15.5); LYMPH % 40 % (24-48); MEAN CORPUSCULAR HEMOGLOBIN 28 pg (25-35); MEAN CORPUSCULAR HGB CONC 33 g/dL (31-37); MEAN CORPUSCULAR VOLUME 84 fL (79-100); MONO # 0.4 x10^3/uL (0.0-1.1); MONO % 8 % (0-9); NEUT # 2.5 x10^3/uL (1.8-7.7); NEUT % 51 % (31-73); PLATELET COUNT 184 x10^3/uL (140-400); RED BLOOD COUNT 4.47 x10^6/uL (3.50-5.40); RED CELL DISTRIBUTION WIDTH 14.1 % (11.5-14.5); WHITE BLOOD COUNT 4.9 x10^3/uL (4.0-11.0)
[2020-11-18 10:15] LABS: CALCIUM 9.8 mg/dL (8.5-10.1); CREATININE 0.7 mg/dL (0.6-1.0); POTASSIUM 3.5 mmol/L (3.5-5.1)
[2020-11-18 10:19] LABS: DIRECT BILIRUBIN 0.1 mg/dL (0.0-0.2); MAGNESIUM 1.6 mg/dL (1.8-2.4); TOTAL BILIRUBIN 0.2 mg/dL (0.2-1.0); TOTAL PROTEIN 7.3 g/dL (6.4-8.2)
--- NOTE | 2020-11-18 10:43 | RAD ---
XR CHEST 1V INDICATION: palpitations . COMPARISON STUDY: None. FINDINGS: Lungs: Normal lung volume. No pulmonary mass or consolidation. The tracheobronchial tree and hilar st ructures are normal. Pleura: No pleural effusion or pneumothorax. Heart and Mediastinum: The cardiomediastinal silhouette is normal. The great vessels of the thorax ar e normal. IMPRESSION: No acute cardiopulmonary process. Electronically signed by: Darryl Miramontes MD (11/18/2020 10:41 AM) [id number]
[2020-11-18 11:29] VITALS: BP 140/66
== END 2020-11-18 11:39 | disposition home or self-care (01) ==
LOC: ER 08:44
DX: I10 Essential (primary) hypertension (principal); R07.2 Precordial pain; R20.2 Paresthesia of skin; F41.9 Anxiety disorder, unspecified; M19.90 Unspecified osteoarthritis, unspecified site; E11.9 Type 2 diabetes mellitus without complications; K21.9 Gastro-esophageal reflux disease without esophagitis; E78.00 Pure hypercholesterolemia, unspecified; Z90.710 Acquired absence of both cervix and uterus; Z98.890 Other specified postprocedural states; Z79.899 Other long term (current) drug therapy
CPT/HCPCS: 36415; 71045; 80048; 80076; 80307; 81001; 83690; 83735; 83880; 84443; 84484; 85025; 93005; 99285

== ENCOUNTER 2020-12-27 00:34 | Emergency (ER) | payer MEDICARE, BC ==
[~2020-12-27] VITALS: Ht 152.4 cm; Wt 60.0 kg
[2020-12-27 02:25] LABS: BASO % 1 % (0-3); EOS % 0 % (0-3); HEMATOCRIT 34.5 % (36.0-47.0); HEMOGLOBIN 11.5 g/dL (12.0-15.5); LYMPH # 1.4 x10^3/uL (1.0-4.8); LYMPH % 26 % (24-48); MEAN CORPUSCULAR HEMOGLOBIN 27 pg (25-35); MEAN CORPUSCULAR HGB CONC 33 g/dL (31-37); MEAN CORPUSCULAR VOLUME 82 fL (79-100); MONO # 0.4 x10^3/uL (0.0-1.1); MONO % 7 % (0-9); NEUT # 3.4 x10^3/uL (1.8-7.7); NEUT % 66 % (31-73); PLATELET COUNT 256 x10^3/uL (140-400); RED BLOOD COUNT 4.21 x10^6/uL (3.50-5.40); RED CELL DISTRIBUTION WIDTH 13.2 % (11.5-14.5); WHITE BLOOD COUNT 5.1 x10^3/uL (4.0-11.0)
[2020-12-27 02:33] LABS: CALCIUM 9.4 mg/dL (8.5-10.1); CREATININE 0.8 mg/dL (0.6-1.0); GFR 84.8
[2020-12-27 02:41] LABS: POTASSIUM 2.8 mmol/L (3.5-5.1)
[2020-12-27] MEDS ORDERED: POTASSIUM CHLORIDE 20 MEQ TABLET.ER. PO ONE (02:45)
--- NOTE | 2020-12-27 02:55 | ED.ADGEN ---
Past Medical History Past Medical History: Anxiety, Arthritis, Diabetes-Type II, GERD, High Cholesterol, Hypertension Additional Past Medical Histor: OSTEOPOROSIS Past Surgical History: Hysterectomy Additional Past Surgical Histo: foot Smoking Status: Never Smoker Alcohol Use: None Drug Use: None General Adult EDM: Chief Complaint: HYPERTENSION HPI: HPI: Patient is a 75-year-old female who presents to the emergency room complaining of feeling at her heart was going to fast. She has had similar issues in the past. She has been evaluated in the emergency room multiple times for this and states that they typically tell her that she has anxiety. She denies any chest pain, shortness of breath, dizziness, headache, blurred vision, numbness, weakness. She states she took her blood pressure and it was elevated. She then took her night blood pressure medications right before coming to the emergency room. She was recently started on anxiety medicine which she is also taken this evening. She is no longer feeling the racing heart. Review of Systems: Review of Systems: Complete ROS is negative unless otherwise documented in HPI Current Medications: Current Medications Medications (Trade) Dose Ordered Sig/Eleni Start Time Stop Time Status Last Admin Dose Admin Potassium Chloride (Klor-Con) 40 meq 1X ONCE 12/27/20 02:45 12/27/20 02:46 DC Allergies: Allergies: Allergies Coded Allergies Type Severity Reaction Last Updated Verified No Known Drug Allergies 11/27/14 No Physical Exam: PE: General: Awake, alert, NAD. Well Nourished, well hydrated. Cooperative HEENT: Atraumatic, EOMI, PERRL, airway patent, moist oral mucosa Neck: Supple, trachea midline Respiratory: CTA bilaterally, normal effort, no wheezing/crackles CV: RRR, no murmur, cap refill <2 GI: Soft, nondistended, nontender, no masses MSK: No obvious deformities Skin: Warm, dry, intact Neuro: A&O x3, speech NL, sensory and motor grossly intact, no focal deficits Psych: Normal affect, normal mood, not suicidal or homicidal Current Patient Data: Labs: Laboratory Tests Test 12/27/20 02:03 White Blood Count 5.1 x10^3/uL (4.0-11.0) Red Blood Count 4.21 x10^6/uL (3.50-5.40) Hemoglobin 11.5 g/dL (12.0-15.5) L Hematocrit 34.5 % (36.0-47.0) L Mean Corpuscular Volume 82 fL (79-100) Mean Corpuscular Hemoglobin 27 pg (25-35) Mean Corpuscular Hemoglobin Concent 33 g/dL (31-37) Red Cell Distribution Width 13.2 % (11.5-14.5) Platelet Count 256 x10^3/uL (140-400) Neutrophils (%) (Auto) 66 % (31-73) Lymphocytes (%) (Auto) 26 % (24-48) Monocytes (%) (Auto) 7 % (0-9) Eosinophils (%) (Auto) 0 % (0-3) Basophils (%) (Auto) 1 % (0-3) Neutrophils # (Auto) 3.4 x10^3/uL (1.8-7.7) Lymphocytes # (Auto) 1.4 x10^3/uL (1.0-4.8) Monocytes # (Auto) 0.4 x10^3/uL (0.0-1.1) Eosinophils # (Auto) 0.0 x10^3/uL (0.0-0.7) Basophils # (Auto) 0.0 x10^3/uL (0.0-0.2) Sodium Level 132 mmol/L (136-145) L Potassium Level 2.8 mmol/L (3.5-5.1) *L Chloride Level 96 mmol/L (98-107) L Carbon Dioxide Level 28 mmol/L (21-32) Anion Gap 8 (6-14) Blood Urea Nitrogen 9 mg/dL (7-20) Creatinine 0.8 mg/dL (0.6-1.0) Estimated GFR (Cockcroft-Gault) 84.8 Glucose Level 158 mg/dL (70-99) H Calcium Level 9.4 mg/dL (8.5-10.1) Troponin I Quantitative < 0.017 ng/mL (0.000-0.055) Laboratory Tests 12/27/20 02:03 Laboratory Tests 12/27/20 02:03 EKG: EKG: [] Heart Score: Risk Factors: Risk Factors: DM, Current or recent (<one month) smoker, HTN, HLP, family history of CAD, obesity. Risk Scores: Score 0 - 3: 2.5% MACE over next 6 weeks - Discharge Home Score 4 - 6: 20.3% MACE over next 6 weeks - Admit for Clinical Observation Score 7 - 10: 72.7% MACE over next 6 weeks - Early Invasive Strategies Radiology/Procedures: Radiology/Procedures: [] Course & Med Decision Making: Course & Med Decision Making Pertinent Labs and Imaging studies reviewed. (See chart for details) Patient is a 75-year-old female who presents to the emergency room complaining of feeling of racing heart and hypertension. Upon my evaluation patient has a relatively normal blood pressure. She is well-appearing. EKG is unremarkable. Patient does not have dizziness, chest pain, shortness of breath. Lab work was ordered to evaluate for endorgan damage and was negative. Patient is not having any cardiac arrhythmia. Given that her blood pressure has improved and she had asymptomatic hypertension no further work-up or intervention is needed at this time per the SIGIFREDO guidelines. Patient's test results and vitals while in the ED were fully reviewed and discussed with the patient. Patient is stable and at this time does not need admission to the hospital. We have discussed strict return precautions and the importance of following up with their Primary Care Physician. Patient stated understanding and was given an opportunity to ask any questions. Patient is in agreement with plan. Sam Disclaimer: Sam Disclaimer: This electronic medical record was generated, in whole or in part, using a voice recognition dictation system. Departure Departure Impression: Primary Impression: Anxiety Additional Impression: Hypertension Disposition: 01 DC HOME SELF CARE/HOMELESS Condition: STABLE Referrals: RAMO ROBLES NP (PCP) Patient Instructions: Hypertension Problem Qualifiers JENNIFER BUNDY MD Dec 27, 2020 02:55
[2020-12-27 03:16] VITALS: BP 161/74
[2020-12-27] MEDS ORDERED: ATOR80TA72 PO (03:54)
[2020-12-27] MEDS ORDERED: BUSP30TA PO (03:54)
[2020-12-27] MEDS ORDERED: SERT25TA PO (03:55)
--- NOTE | 2020-12-27 08:28 | EKG ---
[facility] [address] [place] [address] Test Date: 2020-12-27 Test Time: 00:45:56 Pat Name: GIL MARSHALL Department: Room: Gender: F Nip Wrapper: : 1945 Requested By: JENNIFER BUNDY Order Number: [id number] Reading MD: Bandar Landrum Measurements Intervals [place] Rate: 91 P: 196 AL: 164 QRS: -10 QRSD: 84 T: 52 QT: 356 QTc: 445 Interpretive Statements SINUS RHYTHM LEFT ATRIAL ABNORMALITY LEFTWARD AXIS QRS(T) CONTOUR ABNORMALITY CONSISTENT WITH ANTEROSEPTAL INFARCT PROBABLY OLD Electronically Signed On 12-30-2020 10:08:10 MILLINERY DEPARTMENT MANAGER by Bandar Landrum
[2020-12-27] MEDS ORDERED: ONDA4TAB12 PO (21:20)
== END 2020-12-27 03:20 | disposition home or self-care (01) ==
LOC: ER 00:34
DX: F41.9 Anxiety disorder, unspecified (principal); I10 Essential (primary) hypertension; E11.9 Type 2 diabetes mellitus without complications; K21.9 Gastro-esophageal reflux disease without esophagitis; E78.00 Pure hypercholesterolemia, unspecified
CPT/HCPCS: 36415; 80048; 84484; 85025; 93005; 99285-25

== ENCOUNTER 2020-12-27 19:16 | Emergency (ER) | payer MEDICARE, BC ==
[~2020-12-27] VITALS: Ht 154.9 cm; Wt 60.0 kg
[~2020-12-27 19:16] MED LIST changes: +ATOR80TA72 PO; +BUSP30TA PO; +SERT25TA PO
--- NOTE | 2020-12-27 19:28 | PHYS DOC ---
Past Medical History Past Medical History: Anxiety, Arthritis, Diabetes-Type II, GERD, High Ch olesterol, Hypertension Additional Past Medical Histor: OSTEOPOROSIS Past Surgical History: Hysterectomy Additional Past Surgical Histo: foot Smoking Status: Never Smoker Alcohol Use: None Drug Use: None General Adult EDM: Chief Complaint: NAUSEA/VOMITING/DIARRHA HPI: HPI: 75-year-old female past medical history significant for type 2 diabetes, hypertension, hyperlipidemia, GERD, anxiety and osteoarthritis with osteoporosis, presents to the ED as a bounce back (was seen here 15 hours prior) with complaints of nausea, believed to be attributed to her blood pressure medication, hydralazine. Patient holds up to medications that were filled on December 24 of this year that include hydroxyzine and buspirone, stating these are the medications that are making her nauseous. Patient also was concerned her blood pressure was high at home, was 190/93. States she takes 10 mg of potassium daily for " years." New vomiting or diarrhea. Also complains of acute on chronic anxiety. EMR was reviewed from prior encounter at 2 AM earlier today. Patient was complaining of heart palpitations, feeling as if her heart was going fast. Potassium is 2.8. Troponin < 0.017. Patient takes supplemental potassium. Was given 40meq in ed. Review of Systems: Review of Systems: Constitutional: Denies fever or chills. [] Eyes: Denies change in visual acuity. [] HENT: Denies nasal congestion or sore throat. [] Respiratory: Denies cough or shortness of breath. [] Cardiovascular: Denies chest pain or edema. [] GI: Denies abdominal pain, vomiting, bloody stools or diarrhea. [] : Denies dysuria. [] Musculoskeletal: Denies back pain or joint pain. [] Integument: Denies rash. [] Neurologic: Denies headache, focal weakness or sensory changes. [] Endocrine: Denies polyuria or polydipsia. [] Lymphatic: Denies swollen glands. [] Psychiatric: Denies depression or SI/HI Heart Score: Risk Factors: Risk Factors: DM, Current or recent (<one month) smoker, HTN, HLP, family history of CAD, obesity. Risk Scores: Score 0 - 3: 2.5% MACE over next 6 weeks - Discharge Home Score 4 - 6: 20.3% MACE over next 6 weeks - Admit for Clinical Observation Score 7 - 10: 72.7% MACE over next 6 weeks - Early Invasive Strategies Allergies: Allergies: Allergies Coded Allergies Type Severity Reaction Last Updated Verified No Known Drug Allergies 11/27/14 No Physical Exam: PE: Constitutional: Well developed, well nourished, no acute distress, non-toxic appearance. HENT: Normocephalic, atraumatic, Eyes: EOMI, conjunctiva normal, no discharge. Neck: Normal range of motion, supple, Cardiovascular: S1/2 present, regular rhythm Lungs & Thorax: Speaking in full sentences, bilateral equal chest rise, no tachypnea or increased work of breathing Abdomen: soft, no tenderness, Skin: Warm, dry, no erythema, no rash. [] Back: No tenderness, no CVA tenderness. [] Extremities: No tenderness, no cyanosis, no edema Neurologic: Alert and oriented X 3, normal motor function, normal sensory function, no focal deficits noted. [] Psychologic: Affect normal, judgement normal, mood normal. [] EKG: EK Sinus rhythm at 70 bpm - limb lead discordance on ekg (p waves down on I and II and upright on aVL - should be opposite), first-degree AV block with AK 218, QTC 471, T wave inversions 1 and aVL, no ST elevations or ST depressions 1942and at 76 bpm, prolonged AK 224, left axis deviation, no T wave inversions, no ST elevations or ST depressions, first-degree AV block -no limb lead discordance on this EKG Radiology/Procedures: Radiology/Procedures: [] Course & Med Decision Making: Course & Med Decision Making Pertinent Labs and Imaging studies reviewed. (See chart for details) Well-appearing 75-year-old with mild, asymptomatic hypertension, presents to the ED with complaints of nausea after starting her "blood pressure medicine," - believes she recently started hydralazine. Patient with no active vomiting in ED. Is hemodynamically stable. Potassium is 2.9. Na - 128. Labs also show poorly controlled diabetes. Oral potassium replaced in ED. Magnesium wnl. Pt also c/o anxiety. Patient denies any SI or HI. Pt presents as a bounce back, 2nd ed visit in 24 hours. Patient was reassured that her symptoms are chronic and I recommended urgent PMD follow-up on Wednesday and GI evaluation for further investigation/consider endoscopy for chronic hypokalemia. Will discharge home with strict ED return precautions were given for chest pain, dyspnea, confusion, neurologic deficits or syncope. Encouraged urgent outpatient follow-up with PMD and GI. Life-threatening processes were considered but are low suspicion at this time, given history, physical exam and ED workup. Pt was educated on all pr escription medications and adverse effects. All patient's questions were answered and pt was stable at time of discharge. Life/limb-threatening differential includes but is not limited to, acute coronary syndrome/myocardial infarction, Boerhaave's, DKA, intracranial hemorrhage, ischemic bowel, meningitis, sepsis, surgical abdomen (AAA), toxidrome (drug over/overdose/carbon monoxide, etc), ovarian/testicular torsion, trauma, or infection/sepsis. I spoken with the patient and her caregivers. I explained the patient's condition, diagnoses and treatment plan based on the information available to me at this time. I have answered the patient and her caregiver's questions and addressed any concerns. The patient and her caregivers have a good understanding of patient's diagnosis, condition and treatment plan as can be expected at this point. Vital signs have been stable. Patient's condition is stable and appropriate for discharge from the emergency department. Patient will pursue further outpatient evaluation with primary care physician or other designated or consulting physician as outlined in the discharge instructions. The patient and/or caregivers are agreeable to this plan of care and follow-up instructions have been explained in detail. The patient and/or caregivers have received these instructions in written form and have expressed an understanding of the discharge instructions. The patient and/or caregivers are aware that any significant change of condition or worsening of symptoms should prompt immediate return to this or the closest emergency department or call to 911. Sam Disclaimer: Sam Disclaimer: This electronic medical record was generated, in whole or in part, using a voice recognition dictation system. Departure Departure Impression: Primary Impression: Chronic hypokalemia Additional Impressions: Anxiety Nausea Disposition: 01 DC HOME SELF CARE/HOMELESS Condition: STABLE Referrals: [facility] (PCP) Follow up on Wednesday for medication adjustment/medical management Patient Instructions: Anxiety and Panic Attacks, Hypokalemia, Nausea, Adult Additional Instructions: FOLLOW UP WITH GASTROENTEROLOGY: Gastroenterology [facility] Address: [address] [place] [address] EMERGENCY DEPARTMENT GENERAL DISCHARGE INSTRUCTIONS Thank you for coming to [facility] Emergency Department (ED) today and trusting us with you care. We trust that you had a positive experience in our Emergency Department. If you wish to speak to the department management, you may call the Director at [phone]. YOUR FOLLOW UP INSTRUCTIONS ARE FOLLOWS: 1. Do you have a private Doctor? If you do not have a private doctor, please ask for a resource list of physicians or clinics that may be able to assist you with follow up care. 2. The Emergency Physicain has interpreted your x-rays. The X-Ray specialist will also review them. If there is a change in the findings, you will be notified in 48 hours when at all possible. 3. A lab test or culture has been done, your results will be reviewed and you will be notified if you need a change in treatment. ADDITIONAL INSTRUCTIONS AND INFORMATION: 1. Your care today has been supervised by a physician who is specially trained in emergency care. Many problems require more than one evaluation for a complete diagnosis and treatment. We recommend that you schedule your follow up appointment as recommended to ensure complete treatment of you illness or injury. If you are unable to obtain follow up care and continue to have a problem, or if your condition worsens, we recommend that you return to the ED. 2. We are not able to safely determine your condition over the phone nor are we able to give sound medical advice over the phone. For these safety reasons, if you call for medical advice we will ask you to come to the ED for further evaluation. 3. If you have any questions regarding these discharge instructions please call the ED at [phone]. SAFETY INFORMATION: In the interest of safety, wellness, and injury prevention; we encourage you to wear your sealbelt, if you smoke; quite smoking, and we encourage family to use a protective helmet for bicycling and other sporting events that present an increased risk for head injury. IF YOUR SYMPTOMS WORSEN OR NEW SYMPTOMS DEVELOP, OR YOU HAVE CONCERNS ABOUT YOUR CONDITION; OR IF YOUR CONDITION WORSENS WHILE YOU ARE WAITING FOR YOUR FOLLOW UP APPOINTMENT; EITHER CONTACT YOUR PRIMARY CARE DOCTOR, THE PHYSICIAN WHOSE NAME AND NUMBER YOU WERE GIVEN, OR RETURN TO THE ED IMMEDIATELY. Scripts Ondansetron (ONDANSETRON ODT) 4 Mg Tab.rapdis 1 TAB PO PRN Q6-8HRS, #20 TAB Prov: LAVELLE VERA DO 12/27/20 LAVELLE VERA DO Dec 27, 2020 19:28
[2020-12-27] MEDS ORDERED: ONDANSETRON ODT 4 MG TAB.RAPDIS. PO ONE (19:30)
[2020-12-27 19:56] LABS: BASO % 1 % (0-3); EOS % 0 % (0-3); HEMATOCRIT 35.5 % (36.0-47.0); LYMPH # 1.7 x10^3/uL (1.0-4.8); LYMPH % 34 % (24-48); MEAN CORPUSCULAR HEMOGLOBIN 28 pg (25-35); MEAN CORPUSCULAR HGB CONC 34 g/dL (31-37); MEAN CORPUSCULAR VOLUME 82 fL (79-100); MONO # 0.4 x10^3/uL (0.0-1.1); MONO % 9 % (0-9); NEUT # 2.8 x10^3/uL (1.8-7.7); NEUT % 56 % (31-73); PLATELET COUNT 300 x10^3/uL (140-400); RED BLOOD COUNT 4.34 x10^6/uL (3.50-5.40); RED CELL DISTRIBUTION WIDTH 13.5 % (11.5-14.5); WHITE BLOOD COUNT 5.1 x10^3/uL (4.0-11.0)
[2020-12-27 20:03] LABS: CALCIUM 9.3 mg/dL (8.5-10.1); CREATININE 0.9 mg/dL (0.6-1.0); GFR 74.1
[2020-12-27 20:13] LABS: POTASSIUM 2.9 mmol/L (3.5-5.1)
--- NOTE | 2020-12-27 20:19 | RAD ---
INDICATION: Reason: n/v/d / Spl. Instructions: / History: COMPARISON: November 18, 2020 FINDINGS: Single view of chest obtained. Cardiac mediastinal silhouette is similar to prior with calcific atherosclerosis. No new region of ai rspace consolidation or pulmonary edema. Degenerative changes of the spine and shoulders. IMPRESSION: * No focal airspace consolidation or edema. Electronically signed by: Otis Miles MD (12/27/2020 8:17 PM) [id number]
[2020-12-27] MEDS ORDERED: POTASSIUM BICARB 20 MEQ EFFERVESCENT TABLET. PO ONE (20:45)
[2020-12-27] MEDS ORDERED: ACETAMINOPHEN 325 MG TABLET. PO ONE (21:00)
[2020-12-27] MEDS ORDERED: ONDA4TAB12 PO (21:20)
[2020-12-27 21:29] VITALS: BP 157/72
[2020-12-27] MEDS ORDERED: hydrOXYzine 25 MG TABLET PO PRN (21:30)
--- NOTE | 2020-12-30 11:54 | EKG ---
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
== END 2020-12-27 21:36 | disposition home or self-care (01) ==
LOC: ER 19:16
DX: E87.6 Hypokalemia (principal); F41.9 Anxiety disorder, unspecified; R11.0 Nausea
CPT/HCPCS: 36415; 71045; 80048; 83735; 84484; 85025; 93005; 99285-25

== ENCOUNTER 2021-01-19 08:59 | Emergency (ER) | payer MEDICARE, BC ==
[~2021-01-19] VITALS: Ht 154.9 cm; Wt 59.0 kg
[~2021-01-19 08:59] MED LIST changes: +ONDA4TAB12 PO
--- NOTE | 2021-01-19 10:39 | PHYS DOC ---
Past Medical History Past Medical History: Hypertension Additional Past Medical Histor: OSTEOPOROSIS Past Surgical History: No Surgical History Additional Past Surgical Histo: foot Smoking Status: Never Smoker Alcohol Use: None Drug Use: None General Adult EDM: Chief Complaint: HYPERTENSION HPI: HPI: 75-year-old female past medical history of noninsulin-dependent diabetes, hypertension, hyperlipidemia and GERD, presents to the ED with concerns for elevated blood pressure. States she woke up around 3 AM to the bathroom, her blood pressure at that time was 170/99. Upon ED arrival her blood pressure was 147/66. Reports she is on 4 different blood pressure medicines and added hydrochlorothiazide 2 weeks ago. Was admitted to [facility] November 2020 for elevated blood pressure and chest pain-her BP at that time was 199/90. Patient states her blood pressure" just keeps changing." No history of stroke. Not on any anticoagulants. Currently denies any active chest pain or discomfort, dyspnea, neurologic deficits. Follows with Radha Lloyd at [facility]. Last clinic visit was 12/24/20. Patient denies any [id number] decongestants including Sudafed, stimulants such as caffeine or energy drinks, or methamphetamine or cocaine abuse. Patient reports she has been told it is stress and was started on sertraline in addition to her buspirone and Xanax. Review of Systems: Review of Systems: Constitutional: Denies fever or chills. [] Eyes: Denies change in visual acuity. [] HENT: Denies nasal congestion or sore throat. [] Respiratory: Denies cough or shortness of breath. [] Cardiovascular: Denies chest pain or edema. [] GI: Denies abdominal pain, nausea, vomiting, bloody stools or diarrhea. [] : Denies dysuria. [] Musculoskeletal: Denies back pain or joint pain. [] Integument: Denies rash. [] Neurologic: Denies headache, focal weakness or sensory changes. [] Endocrine: Denies polyuria or polydipsia. [] Lymphatic: Denies swollen glands. [] Psychiatric: Denies depression or anxiety. [] Heart Score: Risk Factors: Risk Factors: DM, Current or recent (<one month) smoker, HTN, HLP, family history of CAD, obesity. Risk Scores: Score 0 - 3: 2.5% MACE over next 6 weeks - Discharge Home Score 4 - 6: 20.3% MACE over next 6 weeks - Admit for Clinical Observation Score 7 - 10: 72.7% MACE over next 6 weeks - Early Invasive Strategies Allergies: Allergies: Allergies Coded Allergies Type Severity Reaction Last Updated Verified No Known Drug Allergies 11/27/14 No Physical Exam: PE: Constitutional: Well developed, well nourished, no acute distress, non-toxic appearance. HENT: Normocephalic, atraumatic, Eyes: EOMI, conjunctiva normal, no discharge. Neck: Normal range of motion, supple, Cardiovascular: S1/2 present, regular rhythm Lungs & Thorax: Speaking in full sentences, bilateral equal chest rise, no tachypnea or increased work of breathing Abdomen: soft, no tenderness, Skin: Warm, dry, no erythema, no rash. [] Back: No tenderness, no CVA tenderness. [] Extremities: No tenderness, no cyanosis, no lower extremity edema Neurologic: Alert and oriented X 3, normal motor function, normal sensory function, no focal deficits noted. [] Psychologic: Affect normal, judgement normal, mood normal. [] Current Patient Data: Vital Signs: Vital Signs Date Time Temp Pulse Resp B/P (MAP) Pulse Ox O2 Delivery O2 Flow Rate FiO2 01/19/21 09:18 98.1 83 20 147/64 (91) 97 Room Air 98.1 EKG: EKG: Sinus rhythm 69 bpm, first-degree AV block with IA 206, left axis deviation, T wave inversions V2 and V3, no ST elevations or ST depressions, no active chest pain Radiology/Procedures: Radiology/Procedures: IMAGING REPORT Signed PATIENT: GIL MARSHALL LACCOUNT: [id number] : 1945 LOCATION: ER AGE: 75 SEX: F EXAM STATUS: PRE ER ORD. PHYSICIAN: LAVELLE VERA DO REASON: htn, left shoulder tingling PROCEDURE: CHEST AP ONLY EXAM: XR CHEST 1V INDICATION: Reason: htn, left shoulder tingling / Spl. Instructions: / History: . TECHNIQUE: Single view COMPARISON: Chest x-ray 12/27/2020 FINDINGS: The heart size is normal. The great vessels again show aortic calcification. No mediastinal widening or shift. There is no hilar or mediastinal mass. The lungs are clear. There is no pleural effusion or pneumothorax. There are no significant osseous abnormalities. IMPRESSION: No active cardiopulmonary disease. Electronically signed by: Elizabeth Nicole MD (01/19/2021 10:36 AM) [facility] DICTATED and SIGNED BY: ELIZABETH NICOLE MD DATE: 01/19/21 [id number] Course & Med Decision Making: Course & Med Decision Making Pertinent Labs and Imaging studies reviewed. (See chart for details) Concern for asymptomatic hypertension in the absence of any end organ damage. Do suspect some anxiety related component. will discharge home with strict ED return precautions were given for chest pain, dyspnea, confusion or neurologic deficits. Encouraged urgent outpatient follow-up with PMD. Life-threatening processes were considered but are low suspicion at this time, given history, physical exam and ED workup. Pt was educated on all prescription medications and adverse effects. All patient's questions were answered and pt was stable at time of discharge. I spoken with the patient and her caregivers. I explained the patient's condition, diagnoses and treatment plan based on the information available to me at this time. I have answered the patient and her caregiver's questions and addressed any concerns. The patient and her caregivers have a good un derstanding of patient's diagnosis, condition and treatment plan as can be expected at this point. Vital signs have been stable. Patient's condition is stable and appropriate for discharge from the emergency department. Patient will pursue further outpatient evaluation with primary care physician or other designated or consulting physician as outlined in the discharge instructi ons. The patient and/or caregivers are agreeable to this plan of care and follow-up instructions have been explained in detail. The patient and/or caregivers have received these instructions in written form and have expressed an understanding of the discharge instructions. The patient and/or caregivers are aware that any significant change of condition or worsening of symptoms s hould prompt immediate return to this or the closest emergency department or call to 911. Sam Disclaimer: Sam Disclaimer: This electronic medical record was generated, in whole or in part, using a voice recognition dictation system. Departure Departure Impression: Primary Impression: Hypertension Additional Impression: Anxiety about health Disposition: 01 DC HOME SELF CARE/HOMELESS Condition: STABLE Referrals: RADHA LLOYD NP (PCP) in 2-3 days Patient Instructions: Hypertension Additional Instructions: EMERGENCY DEPARTMENT GENERAL DISCHARGE INSTRUCTIONS Thank you for coming to [facility] Emergency Department (ED) today and trusting us with you care. We trust that you had a positive experience in our Emergency Department. If you wish to speak to the department management, you may call the Director at [phone]. YOUR FOLLOW UP INSTRUCTIONS ARE FOLLOWS: 1. Do you have a private Doctor? If you do not have a private doctor, please ask for a resource list of physicians or clinics that may be able to assist you with follow up care. 2. The Emergency Physicain has interpreted your x-rays. The X-Ray specialist will also review them. If there is a change in the findings, you will be notified in 48 hours when at all possible. 3. A lab test or culture has been done, your results will be reviewed and you will be notified if you need a change in treatment. ADDITIONAL INSTRUCTIONS AND INFORMATION: 1. Your care today has been supervised by a physician who is specially trained in emergency care. Many problems require more than one evaluation for a complete diagnosis and treatment. We recommend that you schedule your follow up appointment as recommended to ensure complete treatment of you illness or injury. If you are unable to obtain follow up care and continue to have a problem, or if your condition worsens, we recommend that you return to the ED. 2. We are not able to safely determine your condition over the phone nor are we able to give sound medical advice over the phone. For these safety reasons, if you call for medical advice we will ask you to come to the ED for further evaluation. 3. If you have any questions regarding these discharge instructions please call the ED at [phone]. SAFETY INFORMATION: In the interest of safety, wellness, and injury prevention; we encourage you to wear your sealbelt, if you smoke; quite smoking, and we encourage family to use a protective helmet for bicycling and other sporting events that present an increased risk for head injury. IF YOUR SYMPTOMS WORSEN OR NEW SYMPTOMS DEVELOP, OR YOU HAVE CONCERNS ABOUT YOUR CONDITION; OR IF YOUR CONDITION WORSENS WHILE YOU ARE WAITING FOR YOUR FOLLOW UP APPOINTMENT; EITHER CONTACT YOUR PRIMARY CARE DOCTOR, THE PHYSICIAN WHOSE NAME AND NUMBER YOU WERE GIVEN, OR RETURN TO THE ED IMMEDIATELY. LAVELLE VERA DO Jan 19, 2021 10:39
[2021-01-19 11:08] LABS: BASO % 1 % (0-3); EOS % 0 % (0-3); HEMATOCRIT 35.1 % (36.0-47.0); HEMOGLOBIN 11.5 g/dL (12.0-15.5); LYMPH % 35 % (24-48); MEAN CORPUSCULAR HEMOGLOBIN 27 pg (25-35); MEAN CORPUSCULAR HGB CONC 33 g/dL (31-37); MEAN CORPUSCULAR VOLUME 83 fL (79-100); MONO % 8 % (0-9); NEUT % 57 % (31-73); PLATELET COUNT 184 x10^3/uL (140-400); RED BLOOD COUNT 4.21 x10^6/uL (3.50-5.40); RED CELL DISTRIBUTION WIDTH 14.3 % (11.5-14.5); WHITE BLOOD COUNT 3.7 x10^3/uL (4.0-11.0)
[2021-01-19 11:09] LABS: CALCIUM 8.8 mg/dL (8.5-10.1); CREATININE 0.7 mg/dL (0.6-1.0); LYMPH # 1.3 x10^3/uL (1.0-4.8); MONO # 0.3 x10^3/uL (0.0-1.1); NEUT # 2.1 x10^3/uL (1.8-7.7); POTASSIUM 3.4 mmol/L (3.5-5.1)
[2021-01-19 11:15] LABS: ALBUMIN 3.6 g/dL (3.4-5.0); ALBUMIN/GLOBULIN RATIO 1.1 (1.0-1.7); TOTAL BILIRUBIN 0.3 mg/dL (0.2-1.0); TOTAL PROTEIN 6.8 g/dL (6.4-8.2)
--- NOTE | 2021-01-19 12:56 | EKG ---
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
[2021-01-19 13:50] VITALS: BP 150/72
== END 2021-01-19 14:20 | disposition home or self-care (01) ==
LOC: ER 08:59
DX: I10 Essential (primary) hypertension (principal); F41.8 Other specified anxiety disorders; Z98.890 Other specified postprocedural states
CPT/HCPCS: 36415; 71045; 80053; 84484; 85025; 93005; 99285

== ENCOUNTER → 2021-05-01 | Outpatient (CLI) | payer MEDICARE, BC ==
--- NOTE | 2021-05-01 16:40 | RAD ---
EXAM: BILATERAL DIGITAL 3D SCREENING MAMMOGRAPHY. HISTORY: Routine mammographic screening. TECHNIQUE: Bilateral digital 3D and tomographic images were obtained in CC and MLO projections. Compu ter-aided detection was applied. COMPARISON: 04/03/2020, 01/21/2019. COMPOSITION: B. There are scattered areas of fibroglandular density. FINDINGS: There are no suspicious masses, microcalcifications or architectural distortion. The parenc hymal pattern is stable. A few scattered calcifications are benign. BI-RADS CATEGORY 2: Benign. RECOMMENDATION: 1. Routine screening mammography in one year. If mammography demonstrates dense breast tissue (heterogenously dense or extremely dense, category C or D), which could hide abnormalities, and if other risk factors for breast cancer have been identifi ed, supplemental screening tests that may be suggested by the ordering physician may be of benefit. D ense breast tissue, in and of itself, is a relatively common condition. Therefore, this information i s not provided to cause undue concern, but rather to raise awareness and to promote discussion with t he referring physician regarding the presence of other risk factors, in addition to dense breast tiss ue. The results of this mammography examination is provided to the patient and referring physician. T he patient should contact their referring physician if any questions or concerns exist regarding this report. PQRS compliance statement - Patient information was entered into a reminder system with a target due date for the next mammogram. "Our facility is accredited by the [employer] Mammography Program." Electronically signed by: Matti Mtz MD (05/01/2021 4:38 PM) [id number]
== END ==
LOC: MAMMO 15:58
PROVIDERS: ATTEND Nurse Practitioner Family
DX: Z12.31 Encounter for screening mammogram for malignant neoplasm of breast (principal)
CPT/HCPCS: 77063; 77067

== ENCOUNTER → 2021-08-05 | Outpatient (CLI) | payer MEDICARE, BC ==
--- NOTE | 2021-08-05 14:28 | KCIC ---
INDICATION: Screening for osteopenia/osteoporosis. Reason: OSTEOPOROSIS WITHOUT FRACTURE, POST MENOP AUSAL / Spl. Instructions: / History: COMPARISON: None. TECHNIQUE: Bone densitometry was performed through the lumbar spine and proximal femur. IMPRESSION: Lumbar Spine: BMD: 1.1 T-Score: 0.9 Range: Normal Proximal Femur: BMD: 0.8 T-Score: -1.0 Range: Osteopenic World Health Organization Criteria for Bone Density: T-Score: > -1.0: Normal Range < -1.0 to -2.5: Osteopenic Range < -2.5: Osteoporotic Range Electronically signed by: Otis Miles MD (08/05/2021 2:26 PM) [id number]
== END ==
LOC: KCIC DEXA 13:25
PROVIDERS: ATTEND Nurse Practitioner Family
DX: M81.0 Age-related osteoporosis without current pathological fracture (principal); M85.88 Other specified disorders of bone density and structure, other site; N95.9 Unspecified menopausal and perimenopausal disorder
CPT/HCPCS: 77080

== ENCOUNTER 2021-08-30 22:24 | Emergency (ER) | payer MEDICARE, BC ==
[~2021-08-30] VITALS: Ht 157.5 cm; Wt 61.2 kg
[2021-08-31] MEDS ORDERED: METOPROLOL IV PUSH 5 MG/5 ML VIAL. IVP ONE (01:00)
[2021-08-31 01:02] LABS: BASO # 0.1 x10^3/uL (0.0-0.2); BASO % 1 % (0-3); EOS % 1 % (0-3); HEMATOCRIT 37.1 % (36.0-47.0); HEMOGLOBIN 12.3 g/dL (12.0-15.5); LYMPH # 1.9 x10^3/uL (1.0-4.8); LYMPH % 38 % (24-48); MEAN CORPUSCULAR HEMOGLOBIN 27 pg (25-35); MEAN CORPUSCULAR HGB CONC 33 g/dL (31-37); MEAN CORPUSCULAR VOLUME 83 fL (79-100); MONO # 0.4 x10^3/uL (0.0-1.1); MONO % 8 % (0-9); NEUT # 2.6 x10^3/uL (1.8-7.7); NEUT % 52 % (31-73); PLATELET COUNT 211 x10^3/uL (140-400); RED BLOOD COUNT 4.49 x10^6/uL (3.50-5.40); RED CELL DISTRIBUTION WIDTH 13.9 % (11.5-14.5)
[2021-08-31 01:02] LABS: BILIRUBIN,URINE NEGATIVE (NEG); CLARITY,URINE CLEAR; COLOR,URINE YELLOW; NITRITE,URINE NEGATIVE (NEG); PH,URINE 6.5 (<5.0-8.0); PROTEIN,URINE NEGATIVE (NEG-TRACE); UROBILINOGEN,URINE 0.2 mg/dL (0.2 mg/dL)
[2021-08-31 01:08] LABS: BACTERIA,URINE 0 /HPF (0-FEW); RBC,URINE 0 /HPF (0-2); WBC,URINE 0 /HPF (0-4)
[2021-08-31 01:09] LABS: HYALINE CASTS, URINE OCCASIONAL /HPF
[2021-08-31 01:16] LABS: CALCIUM 9.6 mg/dL (8.5-10.1); CREATININE 0.9 mg/dL (0.6-1.0); GFR 74.1
[2021-08-31 01:21] LABS: POTASSIUM 2.7 mmol/L (3.5-5.1)
[2021-08-31] MEDS ORDERED: POTASSIUM CHLORIDE 20MEQ 100 ML IV ONE (01:30)
[2021-08-31] MEDS: POTASSIUM CHLORIDE 10MEQ 100 ML IV SCH ×2 (01:41→02:55)
[2021-08-31] MEDS ORDERED: POTASSIUM CHLORIDE 20 MEQ TABLET.ER. PO ONE (02:00)
[2021-08-31] MEDS ORDERED: LISI-130 PO (04:08)
[2021-08-31] MEDS ORDERED: MAGN400T48 PO (04:09)
[2021-08-31] MEDS ORDERED: POTA-121 PO (04:10)
--- NOTE | 2021-08-31 04:11 | PHYS DOC ---
Past Medical History Past Medical History: Hypertension Additional Past Medical Histor: OSTEOPOROSIS Past Surgical History: Hysterectomy Additional Past Surgical Histo: foot Smoking Status: Never Smoker Alcohol Use: None Drug Use: None General Adult EDM: Chief Complaint: HYPERTENSION HPI: HPI: Patient is a 75 year old female who presents with chronically uncontrolled hypertension. She reports that she has been compliant with all antihypertensive medications. She reports compliance with diet. She reports that her blood pressure is frequently high. She reports that she checked it tonight noted that her systolic was over 200, so she became concerned. She denies headache, dizziness, chest pain, dyspnea, abdominal pain, numbness tingling or motor w eakness. She denies syncope. She reports that she feels well overall. She has an appointment next week with her primary care physician for follow-up. She denies any recent changes in her medication regimen. Review of Systems: Review of Systems: Constitutional: Denies fever or chills. [] Eyes: Denies change in visual acuity or vision loss. [] HENT: Denies nasal congestion or sore throat. [] Respiratory: Denies cough or shortness of breath. [] Cardiovascular: Denies chest pain or edema. [] GI: Denies abdominal pain, nausea, vomiting, bloody stools or diarrhea. [] : Denies urinary symptoms. Musculoskeletal: Denies back pain or joint pain. [] Integument: Denies rash. [] Neurologic: Denies headache, focal weakness or sensory changes denies dizziness or vertigo. [] Endocrine: Denies polyuria or polydipsia. [] Lymphatic: Denies swollen glands. [] Psychiatric: Denies depression or anxiety. [] Heart Score: C/O Chest Pain: No Risk Factors: Risk Factors: DM, Current or recent (<one month) smoker, HTN, HLP, family history of CAD, obesity. Risk Scores: Score 0 - 3: 2.5% MACE over next 6 weeks - Discharge Home Score 4 - 6: 20.3% MACE over next 6 weeks - Admit for Clinical Observation Score 7 - 10: 72.7% MACE over next 6 weeks - Early Invasive Strategies Current Medications: Current Medications Medications (Trade) Dose Ordered Sig/Eleni Start Time Stop Time Status Last Admin Dose Admin Magnesium Oxide (Magnesium Oxide) 400 mg 1X ONCE 08/31/21 04:30 08/31/21 04:31 Metoprolol Tartrate (Lopressor Vial) 5 mg 1X ONCE 08/31/21 01:00 08/31/21 01:01 DC 08/31/21 01:03 5 MG Potassium Chloride/Water 100 ml @ 100 mls/hr Q1H 08/31/21 02:00 08/31/21 03:59 DC 08/31/21 02:55 100 MLS/HR Potassium Chloride (Klor-Con) 40 meq 1X ONCE 08/31/21 02:00 08/31/21 02:01 DC 08/31/21 01:41 40 MEQ Allergies: Allergies: Allergies Coded Allergies Type Severity Reaction Last Updated Verified No Known Drug Allergies 11/27/14 No Physical Exam: PE: Constitutional: Well developed, well nourished, no acute distress, non-toxic appearance. [] HENT: Normocephalic, atraumatic, bilateral external ears normal, oropharynx moist, no oral exudates, nose normal. [] Eyes: PERRL, EOMI, conjunctiva normal, no discharge. [] Neck: Normal range of motion, no tenderness, supple, no stridor. [] Cardiovascular:Heart rate regular rhythm, no murmur, +2 radial and dorsalis pedis pulses bilaterally. [] Lungs & Thorax: Bilateral breath sounds clear to auscultation [] Abdomen: Bowel sounds normal, soft, no tenderness, no masses, no pulsatile masses. [] Skin: Warm, dry, no erythema, no rash. [] Back: No tenderness, no CVA tenderness. [] Extremities: No tenderness, no cyanosis, no clubbing, ROM intact, no edema. [] Neurologic: Alert and oriented X 3, normal motor function, normal sensory function, no focal deficits noted. Gait is steady. Speech is fluent. [] Psychologic: Affect normal, judgement normal, mood normal. She is very pleasant. [] Current Patient Data: Labs: Laboratory Tests Test 08/31/21 00:33 08/31/21 00:55 Urine Collection Type Unknown Urine Color Yellow Urine Clarity Clear Urine pH 6.5 (<5.0-8.0) Urine Specific [place] <=1.005 (1.000-1.030) Urine Protein Negative mg/dL (NEG-TRACE) Urine Glucose (UA) Negative mg/dL (NEG) Urine Ketones (Stick) Negative mg/dL (NEG) Urine Blood Negative (NEG) Urine Nitrite Negative (NEG) Urine Bilirubin Negative (NEG) Urine Urobilinogen Dipstick 0.2 mg/dL (0.2 mg/dL) Urine Leukocyte Esterase Negative (NEG) Urine RBC 0 /HPF (0-2) Urine WBC 0 /HPF (0-4) Urine Squamous Epithelial Cells Occ /LPF Urine Bacteria 0 /HPF (0-FEW) Urine Hyaline Casts Occasional /HPF White Blood Count 5.0 x10^3/uL (4.0-11.0) Red Blood Count 4.49 x10^6/uL (3.50-5.40) Hemoglobin 12.3 g/dL (12.0-15.5) Hematocrit 37.1 % (36.0-47.0) Mean Corpuscular Volume 83 fL (79-100) Mean Corpuscular Hemoglobin 27 pg (25-35) Mean Corpuscular Hemoglobin Concent 33 g/dL (31-37) Red Cell Distribution Width 13.9 % (11.5-14.5) Platelet Count 211 x10^3/uL (140-400) Neutrophils (%) (Auto) 52 % (31-73) Lymphocytes (%) (Auto) 38 % (24-48) Monocytes (%) (Auto) 8 % (0-9) Eosinophils (%) (Auto) 1 % (0-3) Basophils (%) (Auto) 1 % (0-3) Neutrophils # (Auto) 2.6 x10^3/uL (1.8-7.7) Lymphocytes # (Auto) 1.9 x10^3/uL (1.0-4.8) Monocytes # (Auto) 0.4 x10^3/uL (0.0-1.1) Eosinophils # (Auto) 0.0 x10^3/uL (0.0-0.7) Basophils # (Auto) 0.1 x10^3/uL (0.0-0.2) Sodium Level 140 mmol/L (136-145) Potassium Level 2.7 mmol/L (3.5-5.1) *L Chloride Level 102 mmol/L (98-107) Carbon Dioxide Level 29 mmol/L (21-32) Anion Gap 9 (6-14) Blood Urea Nitrogen 8 mg/dL (7-20) Creatinine 0.9 mg/dL (0.6-1.0) Estimated GFR (Cockcroft-Gault) 74.1 Glucose Level 98 mg/dL (70-99) Calcium Level 9.6 mg/dL (8.5-10.1) Magnesium Level 1.6 mg/dL (1.8-2.4) L Laboratory Tests 08/31/21 00:55 Laboratory Tests 08/31/21 00:55 Vital Signs: Vital Signs Date Time Temp Pulse Resp B/P (MAP) Pulse Ox O2 Delivery O2 Flow Rate FiO2 08/31/21 01:22 107 16 105/61 (76) 100 Nasal Cannula 2.0 08/30/21 23:37 98.1 98.1 EKG: EKG: [] Radiology/Procedures: Radiology/Procedures: [] Course & Med Decision Making: Course & Med Decision Making Pertinent Labs and Imaging studies reviewed. (See chart for details) The patient is given a dose of IV Lopressor. Her blood pressure is improved. Systolic is under 200. Diastolic remains under 100. She is given IV and p.o. potassium replacement. She is given p.o. magnesium replacement. I have discussed all the findings, differential diagnosis and plan of care with the patient. I have recommended she continue her regular medications, however I am going to increase her lisinopril from 20 mg daily to 40 mg daily. In addition, I am increasing her daily dose of her potassium and magnesium replacements. I told her to contact her primary care physician and discuss repeat labs, she has a schedule appointment for next week. Currently is asymptomatic with this hypokalemia, denies weakness. No arrhythmia is noted on telemetry. No indication for admission at this time. Return precautions are given. She is comfortable with the plan of care. Sam Disclaimer: Sam Disclaimer: This electronic medical record was generated, in whole or in part, using a voice recognition dictation system. Departure Departure Impression: Primary Impression: Uncontrolled hypertension Additional Impressions: Hypokalemia Hypomagnesemia Disposition: HOME / SELF CARE / HOMELESS Condition: STABLE Referrals: [facility] [employer] (PCP) Patient Instructions: Hypertension, Hypokalemia Additional Instructions: Take the prescribed medications as directed. I am increasing her lisinopril dose, as well as your magnesium and potassium doses. Return to the ER i mmediately for chest pain, difficulty breathing, severe headache, severe dizziness, numbness, weakness difficulty with speech, vision loss, fall or injury or for any other concerns. Make sure to eat a heart healthy diet. Stay well-hydrated. Please contact your physician on Wednesday to arrange for follow- up. You should have labs repeated sometime within the next week or so to make sure your potassium and magnesium levels increased to normal. Scripts Potassium Chloride (KLOR-CON M20) 20 Meq Tab.er.prt 20 MEQ PO BID, #30 TAB.SR Prov: CECILY WEBER DO 08/31/21 Magnesium Oxide (MAGNESIUM OXIDE) 400 Mg Tablet 2 TAB PO DAILY, #30 TAB 5 Refills Prov: CECILY WEBER DO 08/31/21 Lisinopril (LISINOPRIL) 40 Mg Tablet 1 TAB PO DAILY, #30 TAB 5 Refills Prov: CECILY WEBER DO 08/31/21 CECILY WEBER DO Aug 31, 2021 04:10
[2021-08-31] MEDS ORDERED: MAGNESIUM OXIDE 400 MG TABLET PO ONE (04:30)
[2021-08-31 04:49] VITALS: BP 175/74
== END 2021-08-31 04:30 | disposition home or self-care (01) ==
LOC: ER 22:24
DX: I10 Essential (primary) hypertension (principal); E87.6 Hypokalemia; E83.42 Hypomagnesemia
CPT/HCPCS: 36415; 80048; 81001; 83735; 85025; 96365; 96366; 96375; 99284; J3480; J3490; 99285-25